=== PATIENT | male | born 1990 | race Asian ===

== ENCOUNTER 2025-02-11 12:46 | Emergency (ER) | payer OTHER ==
[~2025-02-11] VITALS: Ht 170.2 cm; Wt 66.5 kg
[2025-02-11] MEDS ORDERED: AMOXICILLIN500 M1 PO (13:11)
[2025-02-11] MEDS ORDERED: PREDNISONE20 MG PO (13:11)
[2025-02-11 13:21] VITALS: BP 131/87
== END 2025-02-11 13:22 | disposition home or self-care (01) ==
LOC: ED 12:46
DX: I88.9 Nonspecific lymphadenitis, unspecified (principal)
CPT/HCPCS: 99283